=== PATIENT | male | born 1945 | race Caucasian/White ===

== ENCOUNTER 2022-01-26 06:15 | Inpatient (IN) | payer OTHER ==
[2022-01-22 14:08] LABS: Basophils # (auto) 0.1 10 ^3/uL (0-0.2); Basophils % (auto) 0.7 % (0.0-2.0); Eosinophils # (auto) 0.4 10 ^3/uL (0-0.8); Eosinophils % (auto) 5.3 % (0.0-7.0); Hematocrit 41.3 % (41.0-53.0); Hemoglobin 14.6 g/dL (13.5-17.5); Lymphocytes # (auto) 1.5 10 ^3/uL (0.4-5.4); Lymphocytes % (auto) 17.7 % (10.0-50.0); Mean Corpuscular Hemoglobin 33.6 pg (28.0-32.0); Mean Corpuscular Hgb Conc. 35.2 g/dL (32.0-36.0); Mean Corpuscular Volume 95.3 fL (80.0-100.0); Monocytes # (auto) 0.7 10 ^3/uL (0-1.3); Monocytes % (auto) 8.8 % (0.0-12.0); Neutrophils # (auto) 5.6 10 ^3/uL (1.6-8.6); Neutrophils % (auto) 67.5 % (37.0-80.0); Nucleated Red Blood Cells % 0.1 %; Red Blood Cells 4.34 10^6/uL (4.5-5.90); White Blood Cell 8.3 10^3/uL (4.4-10.8)
[2022-01-22 14:14] LABS: Urine Bacteria NONE SEEN /hpf (None Seen); Urine Blood Negative /uL (Negative); Urine Hyaline Cast FEW /lpf (0 - 2); Urine Specific Gravity 1.013 (1.001-1.035); Urine WBC 1 /hpf (0 - 3)
[2022-01-22 14:20] LABS: Albumin 4.1 g/dL (3.4-5.0); Calcium 9.2 mg/dL (8.5-10.1); Potassium 3.8 mmol/L (3.5-5.1)
[2022-01-22 14:25] LABS: BUN/Creatinine Ratio 20.7; Bilirubin, Total 0.5 mg/dL (0.2-1.0); INR 3.16 (0.9-1.15); Total Protein 7.1 g/dL (6.4-8.2)
[~2022-01-26] VITALS: Ht 180.3 cm; Wt 117.7 kg
[~2022-01-26 06:15] MED LIST: AMIO200T33 PO; APPL188C PO; ATOR40TA52 PO; BENA40TA8 PO; CAPS0.1C6 EX; CHOL20004 PO; CINN500C12 PO; CINN500T PO; FLUT110A IN; FURO20TA3 PO; FURO40TA4 PO; INSU1INJ21 SC; INSU70IN3 SC; LEV100T PO; LORA-354 PO; METO1TAB9 PO; MULT-1018 OR; NAP500T PO; SILD100T57 PO; WARF7.5T20 PO
[2022-01-26] MEDS ORDERED: ceFAZolin 1GM/50ML 100 ML IV ONE (06:49)
[2022-01-26] MEDS ORDERED: SUCCINYLCHOLINE CHLORIDE 20 MG/ML 10ML VIAL IV ONE (07:06)
[2022-01-26] MEDS ORDERED: ROCURONIUM 10MG/ML 10ML VIAL IV ONE (07:06)
[2022-01-26] MEDS ORDERED: BUPIVACAINE 0.25% INJ 50ML VIAL ONE (07:19)
[2022-01-26] MEDS ORDERED: KETOROLAC TROMETH 30 MG/ML 1ML VIAL ONE (07:22)
[2022-01-26] MEDS ORDERED: VANCOMYCIN HCL 1000 MG VL ONE (07:22)
[2022-01-26] MEDS ORDERED: BUPIVACAINE W/ EPINEPH 0.25% INJ 50ML MDV ONE (07:23)
[2022-01-26] MEDS ORDERED: TRANEXAMIC ACID 20 ML ONE (07:24)
[2022-01-26] MEDS ORDERED: MORPHINE SULF PF 5 MG/10 ML VIAL ONE (07:29)
[2022-01-26 07:53] LABS: INR 1.31 (0.9-1.15); Partial Thromboplastin Time 31.9 sec (23.6-33.0)
[2022-01-26] MEDS ORDERED: ACCU-CHEK COMFORT CURVE STRIP VI ONE (08:00)
[2022-01-26] MEDS ORDERED: MORPHINE SULFATE 4 MG/ML SYR/VIAL IV PRN (08:00)
[2022-01-26] MEDS ORDERED: HYDROmorphone HCL 2 MG/ML VL IV PRN (08:00)
[2022-01-26] MEDS ORDERED: METOCLOPRAMIDE HCL 5MG/ml INJ 2ml VIAL IV PRN (08:00)
[2022-01-26] MEDS ORDERED: MIDAZOLAM HCL 2MG/2ML 2ml VIAL (1mg/ml) ONE (08:03)
[2022-01-26] MEDS ORDERED: DexAMETHasone SOD PHOS 10MG/1ML VIAL INJ ONE (08:03)
[2022-01-26] MEDS ORDERED: NEOSTIGMINE 1 MG/ML INJ (10mg/10ML VIAL) ONE (08:03)
[2022-01-26] MEDS ORDERED: fentaNYL CITRATE 100 MCG/2 ML VL ONE ×2 (08:03→09:34)
[2022-01-26] MEDS ORDERED: HYDROmorphone HCL 2 MG/ML VL ONE (08:03)
[2022-01-26] MEDS ORDERED: SODIUM CHLORIDE LOCK 10 ML ONE (08:03)
[2022-01-26] MEDS ORDERED: ONDANSETRON HCL 4 MG/2 ML VIAL ONE (08:03)
[2022-01-26] MEDS ORDERED: GLYCOPYRROLATE 0.2 MG/ML 1ML VIAL ONE (08:03)
[2022-01-26] MEDS ORDERED: PROPOFOL 10 MG/ML 20 ML IV ONE (08:03)
[2022-01-26] MEDS ORDERED: CLINDAMYCIN 900MG IV 50 ML IV ONE (08:15)
[2022-01-26] MEDS ORDERED: SUGAMMADEX 200mg/2ml Vial (100MG/ML) IV ONE (10:31)
[2022-01-26] MEDS ORDERED: ONDANSETRON HCL 4 MG/2 ML VIAL IV PRN (11:30)
[2022-01-26] MEDS ORDERED: NITROGLYCERIN 0.4 MG SL TAB SL PRN (11:30)
[2022-01-26] MEDS ORDERED: hydrALAZINE HCL 20 MG/ML VL IV ONE (11:30)
[2022-01-26] MEDS ORDERED: MORPHINE SULFATE INJECTION 2 MG/ML SYRG IV PRN (11:30)
[2022-01-26] MEDS ORDERED: DOXAPRAM HCL 20 MG/ML 20ML VIAL INJ IV ONE (11:35)
[2022-01-26] MEDS ORDERED: hydrALAZINE HCL 20 MG/ML VL ONE (11:50)
[2022-01-26] MEDS ORDERED: CLINDAMYCIN 600MG IV 50 ML IV SCH (12:00)
[2022-01-26 13:00] VITALS: BP 128/65
[2022-01-26] MEDS: LACTATED RINGER'S 1,000 ML IV SCH (14:23)
[2022-01-26] MEDS: ceFAZolin 1GM/50ML 50 ML IV SCH ×2 (14:44→19:36)
[2022-01-26 15:00] VITALS: BP 134/72
[2022-01-26] MEDS: CLINDAMYCIN 600MG IV 50 ML IV SCH ×2 (15:44→20:49)
[2022-01-26] MEDS: HYDROcodone-ACET 10/325MG TAB PO PRN ×2 (15:46→23:09)
[2022-01-26 17:00] VITALS: BP 109/62
[2022-01-26 19:57] LABS: Albumin 3.6 g/dL (3.4-5.0); Calcium 8.3 mg/dL (8.5-10.1); Potassium 4.5 mmol/L (3.5-5.1)
[2022-01-26 20:00] LABS: BUN/Creatinine Ratio 19.8; Bilirubin, Total 0.4 mg/dL (0.2-1.0); Total Protein 6.7 g/dL (6.4-8.2)
[2022-01-26] MEDS: DOCUSATE SOD 100 MG CAP PO SCH (21:33)
[2022-01-26] MEDS: METOPROLOL SUCCINATE XL 50 MG TAB PO SCH (21:35)
[2022-01-26 22:00] VITALS: BP 113/58
[2022-01-26] MEDS ORDERED: PATIENTS OWN MEDICATION (Metoprolol Succinate (Metoprolol Succinate Er) 100 MG) PO SCH (22:00)
[2022-01-27] MEDS: ceFAZolin 1GM/50ML 50 ML IV SCH (00:21)
[2022-01-27] MEDS: CLINDAMYCIN 600MG IV 50 ML IV SCH (01:24)
[2022-01-27] MEDS: LACTATED RINGER'S 1,000 ML IV SCH ×3 (04:43→16:13)
[2022-01-27 05:00] VITALS: BP 122/62
[2022-01-27 06:21] LABS: INR 1.26 (0.9-1.15); Partial Thromboplastin Time 26.8 sec (23.6-33.0)
[2022-01-27 06:23] LABS: Basophils # (auto) 0 10 ^3/uL (0-0.2); Eosinophils # (auto) 0 10 ^3/uL (0-0.8); Hematocrit 37.1 % (41.0-53.0); Hemoglobin 12.8 g/dL (13.5-17.5); Lymphocytes # (auto) 0.6 10 ^3/uL (0.4-5.4); Lymphocytes % (auto) 4.7 % (10.0-50.0); Mean Corpuscular Hemoglobin 33.6 pg (28.0-32.0); Mean Corpuscular Hgb Conc. 34.6 g/dL (32.0-36.0); Mean Corpuscular Volume 97.2 fL (80.0-100.0); Monocytes # (auto) 1.2 10 ^3/uL (0-1.3); Monocytes % (auto) 8.5 % (0.0-12.0); Neutrophils # (auto) 11.8 10 ^3/uL (1.6-8.6); Neutrophils % (auto) 86.8 % (37.0-80.0); Red Blood Cells 3.82 10^6/uL (4.5-5.90); Red Cell Distribution Width 14.1 % (11.8-14.3); White Blood Cell 13.7 10^3/uL (4.4-10.8)
[2022-01-27 06:52] LABS: Potassium 4.2 mmol/L (3.5-5.1)
[2022-01-27 07:01] LABS: Albumin 3.4 g/dL (3.4-5.0); BUN/Creatinine Ratio 22.5; Bilirubin, Total 0.5 mg/dL (0.2-1.0); Calcium 8.3 mg/dL (8.5-10.1); Total Protein 6.5 g/dL (6.4-8.2)
[2022-01-27 09:00] VITALS: BP 115/58
[2022-01-27] MEDS: DOCUSATE SOD 100 MG CAP PO SCH ×2 (09:01→22:22)
[2022-01-27] MEDS: HYDROcodone-ACET 10/325MG TAB PO PRN ×2 (09:02→19:56)
[2022-01-27] MEDS: BENAZEPRIL HCL 10 MG TAB PO SCH (09:03)
[2022-01-27] MEDS: AMIODARONE HCL 200 MG TAB PO SCH (09:03)
[2022-01-27] MEDS: METOPROLOL SUCCINATE XL 50 MG TAB PO SCH ×2 (09:04→22:22)
[2022-01-27] MEDS ORDERED: PATIENTS OWN MEDICATION (Benazepril Hcl 40 MG) PO SCH (10:00)
[2022-01-27] MEDS ORDERED: INSULIN LANTUS (GLARGINE) 1 /0.01ml (100units/ml) SC SCH ×2 (10:00→22:00)
[2022-01-27] MEDS ORDERED: LEVOTHYROXINE SODIUM 100 MCG TAB PO SCH (10:00)
[2022-01-27] MEDS ORDERED: PATIENTS OWN MEDICATION (Atorvastatin Calcium 1 TAB) PO SCH ×2 (10:00→22:00)
[2022-01-27] MEDS ORDERED: WARFARIN SODIUM 7.5 MG PO SCH (10:00)
[2022-01-27 12:00] VITALS: BP 125/76
[2022-01-27] MEDS: HYDROmorphone HCL 2 MG/ML VL IV PRN (15:50)
[2022-01-27 16:00] VITALS: BP 128/60
[2022-01-27] MEDS ORDERED: WARFARIN SODIUM 2.5 MG TAB PO ONE (17:00)
[2022-01-27] MEDS ORDERED: WARFARIN SODIUM 2.5 MG TAB PO SCH (17:00)
[2022-01-27 22:00] VITALS: BP 113/40
[2022-01-27] MEDS: ATORVASTATIN 20 MG TAB PO SCH (22:22)
[2022-01-28] MEDS: LACTATED RINGER'S 1,000 ML IV SCH (03:36)
[2022-01-28] MEDS: HYDROmorphone HCL 2 MG/ML VL IV PRN (03:44)
[2022-01-28 05:00] VITALS: BP 144/67
[2022-01-28] MEDS: LEVOTHYROXINE SODIUM 100 MCG TAB PO SCH (06:06)
[2022-01-28] MEDS: ALBUTEROL SULF 2.5 MG/0.5ML(0.5%) NEB SOLN NEB PRN ×2 (07:43→11:56)
[2022-01-28] MEDS ORDERED: FUROSEMIDE 40 MG/4 ML VIAL IV ONE (07:45)
[2022-01-28] MEDS ORDERED: DEXTROSE (50%) 50ML SYRG IV PRN (07:45)
[2022-01-28] MEDS ORDERED: LORazepam 2MG/ML-1ML VIAL IV ONE (08:15)
[2022-01-28 08:40] VITALS: BP 186/93
[2022-01-28 09:00] VITALS: BP 144/93
[2022-01-28] MEDS ORDERED: WARFARIN SODIUM 2.5 MG TAB PO ONE (10:00)
[2022-01-28] MEDS: METOPROLOL SUCCINATE XL 50 MG TAB PO SCH ×2 (10:00→21:53)
[2022-01-28] MEDS: BENAZEPRIL HCL 10 MG TAB PO SCH (10:00)
[2022-01-28] MEDS: AMIODARONE HCL 200 MG TAB PO SCH (10:00)
[2022-01-28] MEDS ORDERED: ENOXAPARIN SOD 100 MG/1 ML SYRINGE SC ONE (10:30)
[2022-01-28] MEDS ORDERED: hydrALAZINE HCL 25 MG TAB PO ONE (10:45)
[2022-01-28] MEDS: InsuLIN REG 1unit/0.01ml Soln (100units/ml) SC SCH ×3 (11:30→22:43)
[2022-01-28] MEDS: ACCU-CHEK COMFORT CURVE STRIP VI SCH ×3 (11:30→21:52)
[2022-01-28] MEDS: DOCUSATE SOD 100 MG CAP PO SCH ×2 (12:21→21:50)
[2022-01-28 13:14] VITALS: BP 182/72
[2022-01-28 16:11] LABS: Basophils # (auto) 0.1 10 ^3/uL (0-0.2); Basophils % (auto) 0.7 % (0.0-2.0); Eosinophils # (auto) 0 10 ^3/uL (0-0.8); Eosinophils % (auto) 0.2 % (0.0-7.0); Hematocrit 34.6 % (41.0-53.0); Hemoglobin 12.1 g/dL (13.5-17.5); Lymphocytes # (auto) 0.6 10 ^3/uL (0.4-5.4); Lymphocytes % (auto) 5.4 % (10.0-50.0); Mean Corpuscular Hemoglobin 33.7 pg (28.0-32.0); Mean Corpuscular Hgb Conc. 34.9 g/dL (32.0-36.0); Mean Corpuscular Volume 96.5 fL (80.0-100.0); Monocytes # (auto) 1.1 10 ^3/uL (0-1.3); Monocytes % (auto) 9.6 % (0.0-12.0); Neutrophils % (auto) 84.1 % (37.0-80.0); Nucleated Red Blood Cells % 0.1 %; Red Blood Cells 3.59 10^6/uL (4.5-5.90); White Blood Cell 11.9 10^3/uL (4.4-10.8)
[2022-01-28 16:41] LABS: INR 1.37 (0.9-1.15); Partial Thromboplastin Time 37.9 sec (23.6-33.0)
[2022-01-28 17:00] VITALS: BP 130/52
[2022-01-28] MEDS: WARFARIN SODIUM 2.5 MG TAB PO SCH (17:33)
[2022-01-28] MEDS ORDERED: FUROSEMIDE 20 MG/2 ML VIAL IV ONE (18:30)
[2022-01-28] MEDS: ALBUTEROL SULF 2.5 MG/0.5ML(0.5%) NEB SOLN NEB SCH (18:54)
[2022-01-28] MEDS: IPRATROPIUM BROM 0.5 MG/2.5ML INH SOL NEB SCH (18:54)
[2022-01-28] MEDS: ATORVASTATIN 20 MG TAB PO SCH (21:50)
[2022-01-28] MEDS: hydrALAZINE HCL 25 MG TAB PO SCH (21:51)
[2022-01-28] MEDS: ENOXAPARIN SOD 100 MG/1 ML SYRINGE SC SCH (21:52)
[2022-01-28 22:00] VITALS: BP 136/57
[2022-01-28] MEDS: INSULIN LANTUS (GLARGINE) 1 /0.01ml (100units/ml) SC SCH (22:42)
[2022-01-29] VITALS (7 sets, daily range): BP systolic 113–140; BP diastolic 61–84
[2022-01-29] MEDS: IPRATROPIUM BROM 0.5 MG/2.5ML INH SOL NEB SCH ×4 (00:50→19:22)
[2022-01-29] MEDS: ALBUTEROL SULF 2.5 MG/0.5ML(0.5%) NEB SOLN NEB SCH ×4 (00:50→19:22)
[2022-01-29] MEDS: HYDROmorphone HCL 2 MG/ML VL IV PRN ×3 (02:14→21:44)
[2022-01-29 06:12] LABS: Basophils # (auto) 0 10 ^3/uL (0-0.2); Basophils % (auto) 0.3 % (0.0-2.0); Eosinophils # (auto) 0 10 ^3/uL (0-0.8); Eosinophils % (auto) 0.5 % (0.0-7.0); Hematocrit 33.7 % (41.0-53.0); Hemoglobin 11.9 g/dL (13.5-17.5); Lymphocytes # (auto) 0.6 10 ^3/uL (0.4-5.4); Lymphocytes % (auto) 8.3 % (10.0-50.0); Mean Corpuscular Hemoglobin 34.5 pg (28.0-32.0); Mean Corpuscular Hgb Conc. 35.4 g/dL (32.0-36.0); Mean Corpuscular Volume 97.5 fL (80.0-100.0); Monocytes # (auto) 0.4 10 ^3/uL (0-1.3); Neutrophils # (auto) 6.7 10 ^3/uL (1.6-8.6); Neutrophils % (auto) 85.9 % (37.0-80.0); Nucleated Red Blood Cells % 0.2 %; Red Blood Cells 3.45 10^6/uL (4.5-5.90); Red Cell Distribution Width 13.9 % (11.8-14.3); White Blood Cell 7.8 10^3/uL (4.4-10.8)
[2022-01-29 06:24] LABS: Potassium 3.6 mmol/L (3.5-5.1)
[2022-01-29 06:25] LABS: INR 1.43 (0.9-1.15); Partial Thromboplastin Time 42.1 sec (23.6-33.0)
[2022-01-29 06:31] LABS: Albumin 2.9 g/dL (3.4-5.0); BUN/Creatinine Ratio 24.1; Bilirubin, Total 0.7 mg/dL (0.2-1.0); Calcium 8.1 mg/dL (8.5-10.1); Total Protein 6.2 g/dL (6.4-8.2)
[2022-01-29] MEDS: ACCU-CHEK COMFORT CURVE STRIP VI SCH ×4 (07:10→21:33)
[2022-01-29] MEDS: LEVOTHYROXINE SODIUM 100 MCG TAB PO SCH (07:10)
[2022-01-29] MEDS: InsuLIN REG 1unit/0.01ml Soln (100units/ml) SC SCH ×4 (07:11→21:43)
[2022-01-29] MEDS: ENOXAPARIN SOD 100 MG/1 ML SYRINGE SC SCH (08:51)
[2022-01-29] MEDS: DOCUSATE SOD 100 MG CAP PO SCH ×2 (11:03→21:32)
[2022-01-29] MEDS: hydrALAZINE HCL 25 MG TAB PO SCH ×2 (11:04→21:31)
[2022-01-29] MEDS: AMIODARONE HCL 200 MG TAB PO SCH (11:05)
[2022-01-29] MEDS: METOPROLOL SUCCINATE XL 50 MG TAB PO SCH ×2 (11:14→21:33)
[2022-01-29] MEDS: BENAZEPRIL HCL 10 MG TAB PO SCH (11:14)
[2022-01-29] MEDS: WARFARIN SODIUM 2.5 MG TAB PO SCH (11:37)
[2022-01-29] MEDS: INSULIN LANTUS (GLARGINE) 1 /0.01ml (100units/ml) SC SCH ×2 (12:21→21:44)
[2022-01-29] MEDS ORDERED: POTASSIUM CHL 20 Meq TABLET PO ONE (14:45)
[2022-01-29] MEDS ORDERED: FUROSEMIDE 20 MG/2 ML VIAL IV ONE (14:45)
[2022-01-29] MEDS: ATORVASTATIN 20 MG TAB PO SCH (21:32)
[2022-01-30] MEDS: ALBUTEROL SULF 2.5 MG/0.5ML(0.5%) NEB SOLN NEB SCH ×4 (01:18→18:20)
[2022-01-30] MEDS: IPRATROPIUM BROM 0.5 MG/2.5ML INH SOL NEB SCH ×4 (01:18→18:10)
[2022-01-30 05:00] VITALS: BP 115/46
[2022-01-30] MEDS: LEVOTHYROXINE SODIUM 100 MCG TAB PO SCH (06:08)
[2022-01-30] MEDS: ACCU-CHEK COMFORT CURVE STRIP VI SCH ×5 (06:08→23:33)
[2022-01-30] MEDS: InsuLIN REG 1unit/0.01ml Soln (100units/ml) SC SCH ×5 (06:55→23:32)
[2022-01-30] MEDS: HYDROmorphone HCL 2 MG/ML VL IV PRN ×4 (06:56→23:22)
[2022-01-30 08:59] LABS: INR 2.13 (0.9-1.15); Partial Thromboplastin Time 39.8 sec (23.6-33.0)
[2022-01-30 09:00] VITALS: BP 148/72
[2022-01-30] MEDS: FUROSEMIDE 20 MG/2 ML VIAL IV SCH (09:32)
[2022-01-30] MEDS: hydrALAZINE HCL 25 MG TAB PO SCH ×2 (09:32→21:52)
[2022-01-30] MEDS: METOPROLOL SUCCINATE XL 50 MG TAB PO SCH ×2 (09:33→21:54)
[2022-01-30] MEDS: POTASSIUM CHL 20 Meq TABLET PO SCH (09:34)
[2022-01-30] MEDS: BENAZEPRIL HCL 10 MG TAB PO SCH (09:35)
[2022-01-30] MEDS: AMIODARONE HCL 200 MG TAB PO SCH (09:35)
[2022-01-30] MEDS: DOCUSATE SOD 100 MG CAP PO SCH ×2 (09:35→21:53)
[2022-01-30] MEDS: INSULIN LANTUS (GLARGINE) 1 /0.01ml (100units/ml) SC SCH ×2 (09:41→20:17)
[2022-01-30] MEDS: WARFARIN SODIUM 2.5 MG TAB PO SCH (09:48)
[2022-01-30 13:00] VITALS: BP 120/70
[2022-01-30] MEDS ORDERED: DEXTROSE (50%) 50ML SYRG IV PRN (14:15)
[2022-01-30] MEDS ORDERED: TAMSULOSIN HYDROCHLORIDE 0.4 MG CAP PO ONE (14:15)
[2022-01-30 17:00] VITALS: BP 157/71
[2022-01-30] MEDS: ATORVASTATIN 20 MG TAB PO SCH (21:53)
[2022-01-30 22:00] VITALS: BP 134/71
[2022-01-31] VITALS (7 sets, daily range): BP systolic 93–154; BP diastolic 52–90
[2022-01-31] MEDS: IPRATROPIUM BROM 0.5 MG/2.5ML INH SOL NEB SCH ×4 (00:18→19:11)
[2022-01-31] MEDS: ALBUTEROL SULF 2.5 MG/0.5ML(0.5%) NEB SOLN NEB SCH ×4 (00:18→19:10)
[2022-01-31] MEDS: InsuLIN REG 1unit/0.01ml Soln (100units/ml) SC SCH ×5 (04:32→20:00)
[2022-01-31] MEDS: HYDROmorphone HCL 2 MG/ML VL IV PRN ×3 (04:32→20:11)
[2022-01-31] MEDS: ACCU-CHEK COMFORT CURVE STRIP VI SCH ×5 (04:32→20:10)
[2022-01-31] MEDS: LEVOTHYROXINE SODIUM 100 MCG TAB PO SCH (06:28)
[2022-01-31] MEDS: FUROSEMIDE 20 MG/2 ML VIAL IV SCH (09:33)
[2022-01-31] MEDS: hydrALAZINE HCL 25 MG TAB PO SCH ×2 (09:33→22:18)
[2022-01-31] MEDS: POTASSIUM CHL 20 Meq TABLET PO SCH (09:34)
[2022-01-31] MEDS: AMIODARONE HCL 200 MG TAB PO SCH (09:34)
[2022-01-31] MEDS: BENAZEPRIL HCL 10 MG TAB PO SCH (09:34)
[2022-01-31] MEDS: DOCUSATE SOD 100 MG CAP PO SCH ×2 (09:35→22:18)
[2022-01-31] MEDS: METOPROLOL SUCCINATE XL 50 MG TAB PO SCH ×2 (09:39→22:19)
[2022-01-31] MEDS: INSULIN LANTUS (GLARGINE) 1 /0.01ml (100units/ml) SC SCH ×2 (09:57→20:12)
[2022-01-31] MEDS: WARFARIN SODIUM 2.5 MG TAB PO SCH (10:04)
[2022-01-31 12:51] LABS: INR 3.42 (0.9-1.15); Partial Thromboplastin Time 42.5 sec (23.6-33.0)
[2022-01-31] MEDS: ATORVASTATIN 20 MG TAB PO SCH (22:19)
[2022-02-01] MEDS: InsuLIN REG 1unit/0.01ml Soln (100units/ml) SC SCH ×4 (00:30→12:04)
[2022-02-01] MEDS: HYDROmorphone HCL 2 MG/ML VL IV PRN ×3 (00:30→12:01)
[2022-02-01] MEDS: ACCU-CHEK COMFORT CURVE STRIP VI SCH ×4 (00:38→12:01)
[2022-02-01 04:48] LABS: Basophils # (auto) 0 10 ^3/uL (0-0.2); Basophils % (auto) 0.3 % (0.0-2.0); Eosinophils # (auto) 0.4 10 ^3/uL (0-0.8); Eosinophils % (auto) 5.4 % (0.0-7.0); Hematocrit 34.5 % (41.0-53.0); Hemoglobin 12.4 g/dL (13.5-17.5); Lymphocytes # (auto) 1.1 10 ^3/uL (0.4-5.4); Lymphocytes % (auto) 15.9 % (10.0-50.0); Mean Corpuscular Volume 94.5 fL (80.0-100.0); Monocytes # (auto) 0.7 10 ^3/uL (0-1.3); Monocytes % (auto) 9.6 % (0.0-12.0); Neutrophils % (auto) 68.8 % (37.0-80.0); Nucleated Red Blood Cells % 0.2 %; Red Blood Cells 3.66 10^6/uL (4.5-5.90); Red Cell Distribution Width 13.9 % (11.8-14.3); White Blood Cell 7.2 10^3/uL (4.4-10.8)
[2022-02-01 05:00] VITALS: BP 182/75
[2022-02-01 05:01] LABS: BUN/Creatinine Ratio 27.2; Calcium 8.5 mg/dL (8.5-10.1); Partial Thromboplastin Time 48.7 sec (23.6-33.0); Potassium 3.8 mmol/L (3.5-5.1)
[2022-02-01 05:03] LABS: INR 4.2 (0.9-1.15)
[2022-02-01] MEDS: LEVOTHYROXINE SODIUM 100 MCG TAB PO SCH (06:09)
[2022-02-01] MEDS: ALBUTEROL SULF 2.5 MG/0.5ML(0.5%) NEB SOLN NEB SCH ×3 (06:54→11:07)
[2022-02-01] MEDS: IPRATROPIUM BROM 0.5 MG/2.5ML INH SOL NEB SCH ×3 (06:54→11:07)
[2022-02-01 08:46] VITALS: BP 118/58
[2022-02-01] MEDS: FUROSEMIDE 20 MG/2 ML VIAL IV SCH (09:17)
[2022-02-01] MEDS: METOPROLOL SUCCINATE XL 50 MG TAB PO SCH (09:18)
[2022-02-01] MEDS: BENAZEPRIL HCL 10 MG TAB PO SCH (09:19)
[2022-02-01] MEDS: POTASSIUM CHL 20 Meq TABLET PO SCH (09:19)
[2022-02-01] MEDS: DOCUSATE SOD 100 MG CAP PO SCH (09:19)
[2022-02-01] MEDS: AMIODARONE HCL 200 MG TAB PO SCH (09:20)
[2022-02-01] MEDS: hydrALAZINE HCL 25 MG TAB PO SCH (09:20)
[2022-02-01] MEDS: INSULIN LANTUS (GLARGINE) 1 /0.01ml (100units/ml) SC SCH (09:26)
[2022-02-01 12:09] VITALS: BP 118/58
[2022-02-01 13:00] VITALS: BP 115/80
[2022-02-01 17:00] VITALS: BP 150/79
[2022-02-02] MEDS ORDERED: WARFARIN SODIUM 2.5 MG TAB PO SCH (17:00)
== END 2022-02-01 17:51 | disposition home or self-care (01) | DRG 483 ==
LOC: SUR 06:15 → TELE 11:23 → TELE-WESTW 13:00
PROVIDERS: ADMIT Orthopaedic Surgery Sports Medicine; ATTEND Internal Medicine
PROC: 0LS40ZZ Reposition Left Upper Arm Tendon, Open Approach (ICD-10-PCS; 2022-01-26)
PROC: BP191ZZ Fluoroscopy of Left Shoulder using Low Osmolar Contrast (ICD-10-PCS; 2022-01-26)
PROC: 0RRK00Z Replacement of Left Shoulder Joint with Reverse Ball and Socket Synthetic Substitute, Open Approach (ICD-10-PCS; principal; 2022-01-26 08:02)
PROC: 5A09357 Assistance with Respiratory Ventilation, Less than 24 Consecutive Hours, Continuous Positive Airway Pressure (ICD-10-PCS; 2022-01-28)
DX: M75.122 Complete rotator cuff tear or rupture of left shoulder, not specified as traumatic (principal); J96.01 Acute respiratory failure with hypoxia; D68.59 Other primary thrombophilia; J81.1 Chronic pulmonary edema; I48.91 Unspecified atrial fibrillation; E78.5 Hyperlipidemia, unspecified; I10 Essential (primary) hypertension; M19.012 Primary osteoarthritis, left shoulder; G89.29 Other chronic pain; R33.9 Retention of urine, unspecified; Z20.822 Contact with and (suspected) exposure to COVID-19; G47.33 Obstructive sleep apnea (adult) (pediatric); E66.01 Morbid (severe) obesity due to excess calories; Z68.37 Body mass index [BMI] 37.0-37.9, adult; Z80.1 Family history of malignant neoplasm of trachea, bronchus and lung; Z80.3 Family history of malignant neoplasm of breast; Z80.42 Family history of malignant neoplasm of prostate; Z80.8 Family history of malignant neoplasm of other organs or systems; Z81.8 Family history of other mental and behavioral disorders; Z82.0 Family history of epilepsy and other diseases of the nervous system; Z82.3 Family history of stroke; Z82.49 Family history of ischemic heart disease and other diseases of the circulatory system; Z82.5 Family history of asthma and other chronic lower respiratory diseases; Z82.62 Family history of osteoporosis; Z83.3 Family history of diabetes mellitus; E11.65 Type 2 diabetes mellitus with hyperglycemia; Z79.4 Long term (current) use of insulin
CPT/HCPCS: 36415; 71045; 73020; 73030; 76000; 80048; 80053; 81001; 82306; 82962; 83036; 83880; 85025; 85379; 85610; 85730; 86850; 86900; 86901; 94640; 94660; 97110; 97116; 97163; 97530; G0378; J0330; J0690; J1100; J1815; J1885; J2250; J2405; J2704; J3490